=== PATIENT | female | born 1985 | race Two or more races ===

== ENCOUNTER 2023-06-11 12:50 | Emergency (ER) | payer BC ==
[~2023-06-11] VITALS: Ht 167.6 cm; Wt 59.0 kg
[2023-06-11] MEDS: IV NS 0.9% 1,000 ML BAG IV ONE (13:10)
[2023-06-11 13:33] LABS: APPEARANCE,URINE SLIGHTLY CLOUDY (CLEAR); BILIRUBIN,URINE NEGATIVE (NEGATIVE); BLOOD, URINE NEGATIVE Ery/uL (NEGATIVE); COLOR,URINE YELLOW (YELLOW); KETONES,URINE NEGATIVE (NEGATIVE); LEUKOCYTE ESTERASE ,URINE NEGATIVE (NEGATIVE); NITRITE, URINE NEGATIVE (NEGATIVE); PROTEIN,URINE NEGATIVE (NEGATIVE); UGLUCOSE NEGATIVE (NEGATIVE); UROBILINOGEN,URINE 0.2 EU/dL (0.2)
[2023-06-11 13:38] LABS: PREGNANCY TEST URINE QUAL NEGATIVE (NEGATIVE)
[2023-06-11 13:45] LABS: BASOPHILS % (AUTO) 0.2 % (0.0-2.0); EOSINOPHILS # (AUTO) 0.1 K/uL (0.0-0.7); EOSINOPHILS % (AUTO) 0.8 % (0.0-6.0); HEMATOCRIT 41 % (33-45); HEMOGLOBIN 13.7 g/dL (11.5-14.8); LYMPHOCYTES # (AUTO) 1.6 K/uL (0.8-4.8); LYMPHOCYTES % (AUTO) 22.9 % (20.0-44.0); MEAN CORPUSCULAR HEMOGLOBIN 32 PG (26.0-33.0); MEAN CORPUSCULAR HGB CONC 34 g/dl (31.0-36.0); MEAN CORPUSCULAR VOLUME 95 fL (82-100); MONOCYTES # (AUTO) 0.8 K/uL (0.1-1.30); NEUTROPHILS # (AUTO) 4.5 K/uL (1.8-8.9); NEUTROPHILS % (AUTO) 64.1 % (43.0-81.0); PLATELET COUNT (AUTO) 297 K/uL (150-450); RED BLOOD CELL COUNT(AUTO) 4.26 MIL/uL (4.0-5.2); RED CELL DISTRIBUTION WIDTH 13.6 % (11.5-15.0)
[2023-06-11 13:46] LABS: ADD URINE CULTURE NO; BACTERIA,URINE Rare /HPF (None Seen); RBC,URINE 0-2 /HPF (0-2); WBC,URINE 0-2 /HPF (0-3)
[2023-06-11 13:47] LABS: SQUAMOUS EPITHELIAL CELL,UR Few /HPF (None Seen)
[2023-06-11] MEDS ORDERED: ACETAMINOPHEN ES 500 MG TABLET ONE (13:52)
[2023-06-11] MEDS ORDERED: KETOROLAC TROMETHAMINE 15 MG/ML VIAL ONE (13:52)
[2023-06-11 13:54] LABS: ALBUMIN 3.9 g/dL (3.4-5.0); BILIRUBIN,DIRECT 0.1 mg/dL (0.0-0.2); BILIRUBIN,TOTAL 0.4 mg/dL (0.2-1.0); CALCIUM, SERUM 9.2 mg/dL (8.5-10.1); CREATININE 0.8 mg/dL (0.6-1.3); POTASSIUM 3.5 mmol/L (3.5-5.1); TOTAL PROTEIN, SERUM 7.4 g/dL (6.4-8.2)
[2023-06-11] MEDS: KETOROLAC TROMETHAMINE 15 MG/ML VIAL IV ONE (14:00)
[2023-06-11] MEDS: ACETAMINOPHEN ES 500 MG TABLET PO ONE (14:00)
[2023-06-11 14:58] VITALS: BP 118/71; TEMP 98.3; O2SAT 97
== END 2023-06-11 14:59 | disposition home or self-care (01) ==
LOC: ER 12:56
DX: R10.11 Right upper quadrant pain (principal)
CPT/HCPCS: 99285; 96374; 76705; 96361; 85025; 80048; 83690; 80076; 84703; 81001; 36415; J7030; J1885